=== PATIENT | female | born 1930 | race Caucasian/White ===

== ENCOUNTER 2017-04-01 09:31 | Inpatient (IN) ==
[2017-04-01] MEDS ORDERED: 0.9 % Sodium Chloride 1,000 ML IVC ONE (09:36)
[2017-04-01 09:55] LABS: Basophils % 0.5 %; Eosinophils # 0.2 K/mcL (0.0-0.6); Eosinophils % 1.8 %; Hematocrit 45.1 % (35.3-44.9); Hemoglobin 14.5 g/dL (11.5-15.4); Immature Granulocytes % 0.9 % (0-4); Lymphocytes # 0.8 K/mcL (0.6-4.6); Lymphocytes % 10.2 %; Mean Corpuscular HGB Conc 32.2 g/dL (31.6-35.5); Mean Corpuscular Hemoglobin 30.6 pg (28.0-33.3); Mean Corpuscular Volume 95.1 fL (83.0-100.0); Mean Platelet Volume 10.4 fL (9.4-12.4); Monocytes # 0.6 K/mcL (0.0-1.3); Monocytes % 6.7 %; Neutrophils # 6.6 K/mcL (1.6-8.9); Platelet Count 198 K/mcL (140-400); Red Blood Count 4.74 M/mcL (3.82-4.97); Red Cell Distribution Width 13.7 % (11.5-14.5); Segmented Neutrophils % 79.9 %
[2017-04-01 10:01] LABS: Prothrombin Time 10.4 Seconds (9.4-12.1)
[2017-04-01 10:04] LABS: Activated Partial Thrombo Time 31.5 Seconds (26.0-36.0)
[2017-04-01 10:08] LABS: Albumin 3.8 g/dL (3.5-5.0); Bilirubin,Total 0.5 mg/dL (0.2-1.2); Calcium 9.8 mg/dL (8.6-10.8); Globulin 3.7 g/dL (2.4-3.5); Potassium 4.5 mEq/L (3.5-4.5); Total Protein 7.5 g/dL (6.0-8.3)
--- NOTE | 2017-04-01 10:18 | Emergency Department Note ---
START Narrative - START START: I examined this patient and my medical decision-making was reviewed with the Resident Physician. I agree with the documented findings, disposition and treatment plan as described except to the extent set forth below. 86 year old female presents to the ED with complaints of near sycnope that has been going for the past week or so with geenralized weakness. Vonda denies synope at this titme. Vonda denies fevers, cough, cold, congestion, nausea, ovmitting, chest pain, abdominal pain, or neurological defecits. NO UTI symptoms. WE will do a syncope mohsen on vonda with labs, EKG, CXr, UA for evaluation. She has a chronic femur fracture and has difficulty with ambulation at baseline. [facility].
[2017-04-01 10:50] LABS: Bilirubin,Urine Negative (Negative); Blood,Urine Negative (Negative); Clarity,Urine Clear (Clear); Color,Urine Yellow (Yellow); Glucose,Urine (UA) Normal (Normal); Ketones,Urine Negative (Negative); Leukocyte Esterase,Urine Large (Negative); Nitrite,Urine Negative (Negative); Protein,Urine Negative (Neg-Trace); Specific Gravity,Urine 1.012 (1.010-1.025); Urobilinogen,Urine Normal (Normal)
[2017-04-01 10:53] LABS: Bacteria,Urine None Seen per hpf (None-Few); Hyaline Casts,Urine None Seen per lpf (None-Few); RBC,Urine 0-3 per hpf (0-3); Squamous Epithelial Cell,Urine Many per lpf (None-Few); WBC,Urine 30-50 per hpf (0-3)
--- NOTE | 2017-04-01 11:30 | Emergency Department Note ---
Disposition Clinical Impression: Fracture of femur, Left bundle branch block (LBBB) on electrocardiogram, Syncope, PREMA (acute kidney injury), CHF (congestive heart failure) Disposition: Admitted As Inpatient Condition: Fair Syncope HPI - General Chief Complaint: ED Syncope Stated Complaint: syncope, abnormal sensations Time Seen by Provider: 04/01/17 09:33 Source: patient, EMS Mode of arrival: EMS Limitations: no limitations Nursing Notes Reviewed: Yes Vital Signs Reviewed: Yes - History of Present Illness HPI Narrative: Patient presents to the ED with the chief complaint of passing out and feeling weird. Patient reports that she has been having syncopal and near-syncopal episodes over the last week, complaining of generalized weakness and fatigue. States she gets numbness and tingling in her face, arms and legs at times. States that she just does not feel well. Complaining of some shortness of breath as well. Denies any chest pain, abdominal pain. Has been nauseated at times. Has chronic pain and swelling in her legs after a femur fracture 2 years ago. - Related Data Home Medications Medication Instructions Recorded Confirmed Atenolol [Tenormin] 50 mg PO DAILY 05/13/15 04/01/17 Chlorthalidone 25 mg PO DAILY 05/13/15 04/01/17 Potassium Chloride 10 meq PO BID 05/13/15 04/01/17 Calcium Carbonate/Vitamin D3 1 tab PO DAILY 04/01/17 04/01/17 [Calcium 500 + Vit D Caplet] Allergies Allergy/AdvReac Type Severity Reaction Status Date / Time Pnlkamp-Ddi-Elr Reductase Allergy Vomiting Verified 04/01/17 09:33 Inhibitor [Statins] All systems ED: reviewed and negative except as stated. Constitutional: Denies: fever Eyes: Denies: vision change Cardiovascular: Reports: dyspnea on exertion, orthopnea, edema, syncope, paroxysmal nocturnal dyspnea. Denies: chest pain Respiratory: Reports: dyspnea Gastrointestinal: Reports: nausea Neurological: Denies: headache Past Medical History - Past Medical History Attestation: Yes The following information was validated with the patient. Source: patient Medical history: Reports: GERD, hyperlipidemia, hypertension, osteoporosis, other Surgical history: Reports: cataract, cholecystectomy, knee replacement, PEREZ/BSO , other Psychiatric history: Reports: anxiety - Social History Smoking Status: Former smoker Smokeless Tobacco Status: No Alcohol use: Reports: none Drug use: Reports: none Physical Exam - General Limitations: no limitations General appearance: alert, in no apparent distress - Head Head exam: atraumatic, normocephalic, normal inspection - Eye Eye exam: Present: normal appearance, PERRL, EOMI - Chest Chest inspection: Present: normal inspection, symmetric chest wall rise - Respiratory Respiratory exam: Present: other (Decreased breath sounds bilateral bases). Absent: normal lung sounds bilaterally, respiratory distress - Cardiovascular Cardiovascular exam: Present: regular rate, normal rhythm, normal heart sounds - Abdominal Exam Abdominal exam: Present: soft, Non-Tender. Absent: tenderness, distention, guarding, rebound, rigidity - Extremities Exam Extremities exam: Present: pedal edema - Neurological Exam Neurological exam: Present: alert, oriented X3 - Psychiatric Psychiatric exam: Present: normal affect, normal mood - Skin Skin exam: Present: warm, dry, intact, normal color Course Course Narrative: Patient presenting with near syncope and shortness of breath. Seems to be related to CHF, although she denies any history. We will get a CT scan of her head labs and admit. Vital Signs Temperature 98 F 04/01/17 09:34 Pulse Rate 68 04/01/17 09:34 Respiratory Rate 18 04/01/17 09:34 Blood Pressure 163/78 04/01/17 09:34 O2 Sat by Pulse Oximetry 97 04/01/17 09:34 Temperature 97.4 F L 04/01/17 13:45 Pulse Rate 75 04/01/17 13:45 Respiratory Rate 17 04/01/17 13:45 Blood Pressure 129/76 04/01/17 13:45 O2 Sat by Pulse Oximetry 95 04/01/17 13:45 Oxygen Delivery Oxygen Delivery Room Air Syncope - Lab Data Result diagrams: 04/01/17 09:45 04/01/17 09:45 Lab Results 04/01/17 04/01/17 04/01/17 Range/Units 09:45 09:45 09:45 WBC 8.2 (4.3-11.1) K/mcL RBC 4.74 (3.82-4.97) M/mcL Hgb 14.5 (11.5-15.4) g/dL Hct 45.1 H (35.3-44.9) % MCV 95.1 (83.0-100.0) fL MCH 30.6 (28.0-33.3) pg MCHC 32.2 (31.6-35.5) g/dL RDW 13.7 (11.5-14.5) % Plt Count 198 (140-400) K/mcL MPV 10.4 (9.4-12.4) fL Immature Gran % 0.9 (0-4) % Seg Neutrophils % 79.9 % Lymphocytes % 10.2 % Monocytes % 6.7 % Eosinophils % 1.8 % Basophils % 0.5 % Neutrophils # 6.6 (1.6-8.9) K/mcL Lymphocytes # 0.8 (0.6-4.6) K/mcL Monocytes # 0.6 (0.0-1.3) K/mcL Eosinophils # 0.2 (0.0-0.6) K/mcL Basophils # 0.0 (0.0-0.2) K/mcL PT 10.4 (9.4-12.1) Seconds INR 1.0 APTT 31.5 (26.0-36.0) Seconds Sodium 140 (136-145) mEq/L Potassium 4.5 (3.5-4.5) mEq/L Chloride 105 (98-109) mEq/L Carbon Dioxide 28 (19-29) mEq/L BUN 25 H (7-20) mg/dL Creatinine 1.17 H (0.57-1.11) mg/dL Est GFR ( Amer) 53 L (> 60) Est GFR (Non-Af Amer) 44 L (> 60) BUN/Creatinine Ratio 21 (6-26) Glucose 104 H (70-99) mg/dL POC Glucose (58-89) Calculated Osmolality 295 (280-300) Lactic Acid (0.5-2.2) mmol/L Calcium 9.8 (8.6-10.8) mg/dL Total Bilirubin 0.5 (0.2-1.2) mg/dL AST 16 (5-34) Units/L ALT 10 (0-55) Units/L Alkaline Phosphatase 61 (38-126) Units/L Troponin I (0-0.03) ng/mL B-Natriuretic Peptide (0-100) pg/mL Serum Total Protein 7.5 (6.0-8.3) g/dL Albumin 3.8 (3.5-5.0) g/dL Globulin 3.7 H (2.4-3.5) g/dL Albumin/Globulin Ratio 1.0 L (1.1-2.2) Urine Color (Yellow) Urine Clarity (Clear) Urine pH (5.0-8.0) pH Units Ur Specific [place] (1.010-1.025) Urine Protein (Neg-Trace) mg/dL Urine Glucose (UA) (Normal) mg/dL Urine Ketones (Negative) mg/dL Urine Blood (Negative) Urine Nitrite (Negative) Urine Bilirubin (Negative) Urine Urobilinogen (Normal) mg/dL Ur Leukocyte Esterase (Negative) Urine Microscopic RBC (0-3) per hpf Urine Microscopic WBC (0-3) per hpf Ur Squamous Epith Cells (None-Few) per lpf Urine Bacteria (None-Few) per hpf Hyaline Casts (None-Few) per lpf Ur Culture Indicated? (NO) 04/01/17 04/01/17 04/01/17 Range/Units 09:45 09:45 09:45 WBC (4.3-11.1) K/mcL RBC (3.82-4.97) M/mcL Hgb (11.5-15.4) g/dL Hct (35.3-44.9) % MCV (83.0-100.0) fL MCH (28.0-33.3) pg MCHC (31.6-35.5) g/dL RDW (11.5-14.5) % Plt Count (140-400) K/mcL MPV (9.4-12.4) fL Immature Gran % (0-4) % Seg Neutrophils % % Lymphocytes % % Monocytes % % Eosinophils % % Basophils % % Neutrophils # (1.6-8.9) K/mcL Lymphocytes # (0.6-4.6) K/mcL Monocytes # (0.0-1.3) K/mcL Eosinophils # (0.0-0.6) K/mcL Basophils # (0.0-0.2) K/mcL PT (9.4-12.1) Seconds INR APTT (26.0-36.0) Seconds Sodium (136-145) mEq/L Potassium (3.5-4.5) mEq/L Chloride (98-109) mEq/L Carbon Dioxide (19-29) mEq/L BUN (7-20) mg/dL Creatinine (0.57-1.11) mg/dL Est GFR ( Amer) (> 60) Est GFR (Non-Af Amer) (> 60) BUN/Creatinine Ratio (6-26) Glucose (70-99) mg/dL POC Glucose (58-89) Calculated Osmolality (280-300) Lactic Acid 0.9 (0.5-2.2) mmol/L Calcium (8.6-10.8) mg/dL Total Bilirubin (0.2-1.2) mg/dL AST (5-34) Units/L ALT (0-55) Units/L Alkaline Phosphatase (38-126) Units/L Troponin I 0.01 (0-0.03) ng/mL B-Natriuretic Peptide 202 H (0-100) pg/mL Serum Total Protein (6.0-8.3) g/dL Albumin (3.5-5.0) g/dL Globulin (2.4-3.5) g/dL Albumin/Globulin Ratio (1.1-2.2) Urine Color (Yellow) Urine Clarity (Clear) Urine pH (5.0-8.0) pH Units Ur Specific [place] (1.010-1.025) Urine Protein (Neg-Trace) mg/dL Urine Glucose (UA) (Normal) mg/dL Urine Ketones (Negative) mg/dL Urine Blood (Negative) Urine Nitrite (Negative) Urine Bilirubin (Negative) Urine Urobilinogen (Normal) mg/dL Ur Leukocyte Esterase (Negative) Urine Microscopic RBC (0-3) per hpf Urine Microscopic WBC (0-3) per hpf Ur Squamous Epith Cells (None-Few) per lpf Urine Bacteria (None-Few) per hpf Hyaline Casts (None-Few) per lpf Ur Culture Indicated? (NO) 04/01/17 04/01/17 Range/Units 10:26 10:41 WBC (4.3-11.1) K/mcL RBC (3.82-4.97) M/mcL Hgb (11.5-15.4) g/dL Hct (35.3-44.9) % MCV (83.0-100.0) fL MCH (28.0-33.3) pg MCHC (31.6-35.5) g/dL RDW (11.5-14.5) % Plt Count (140-400) K/mcL MPV (9.4-12.4) fL Immature Gran % (0-4) % Seg Neutrophils % % Lymphocytes % % Monocytes % % Eosinophils % % Basophils % % Neutrophils # (1.6-8.9) K/mcL Lymphocytes # (0.6-4.6) K/mcL Monocytes # (0.0-1.3) K/mcL Eosinophils # (0.0-0.6) K/mcL Basophils # (0.0-0.2) K/mcL PT (9.4-12.1) Seconds INR APTT (26.0-36.0) Seconds Sodium (136-145) mEq/L Potassium (3.5-4.5) mEq/L Chloride (98-109) mEq/L Carbon Dioxide (19-29) mEq/L BUN (7-20) mg/dL Creatinine (0.57-1.11) mg/dL Est GFR ( Amer) (> 60) Est GFR (Non-Af Amer) (> 60) BUN/Creatinine Ratio (6-26) Glucose (70-99) mg/dL POC Glucose 87 (58-89) Calculated Osmolality (280-300) Lactic Acid (0.5-2.2) mmol/L Calcium (8.6-10.8) mg/dL Total Bilirubin (0.2-1.2) mg/dL AST (5-34) Units/L ALT (0-55) Units/L Alkaline Phosphatase (38-126) Units/L Troponin I (0-0.03) ng/mL B-Natriuretic Peptide (0-100) pg/mL Serum Total Protein (6.0-8.3) g/dL Albumin (3.5-5.0) g/dL Globulin (2.4-3.5) g/dL Albumin/Globulin Ratio (1.1-2.2) Urine Color Yellow (Yellow) Urine Clarity Clear (Clear) Urine pH 7.0 (5.0-8.0) pH Units Ur Specific [place] 1.012 (1.010-1.025) Urine Protein Negative (Neg-Trace) mg/dL Urine Glucose (UA) Normal (Normal) mg/dL Urine Ketones Negative (Negative) mg/dL Urine Blood Negative (Negative) Urine Nitrite Negative (Negative) Urine Bilirubin Negative (Negative) Urine Urobilinogen Normal (Normal) mg/dL Ur Leukocyte Esterase Large H (Negative) Urine Microscopic RBC 0-3 (0-3) per hpf Urine Microscopic WBC 30-50 H (0-3) per hpf Ur Squamous Epith Cells Many H (None-Few) per lpf Urine Bacteria None Seen (None-Few) per hpf Hyaline Casts None Seen (None-Few) per lpf Ur Culture Indicated? YES A (NO)
[2017-04-01] MEDS ORDERED: MOM Conc 10 ML UD.LIQ PO PRN (13:39)
[2017-04-01] MEDS ORDERED: Naloxone 0.4 MG/ML INJ IVP PRN (13:39)
[2017-04-01] MEDS ORDERED: Acetaminophen 325 MG TABLET PO PRN (13:39)
[2017-04-01] MEDS ORDERED: Ondansetron ODT 4 MG TAB.RAPDIS SL PRN (13:39)
[2017-04-01] MEDS ORDERED: Mag Hydrox/Al Hydrox/Simeth 30 ML UDC PO PRN (13:39)
--- NOTE | 2017-04-01 16:00 | Internal Med History&Physical ---
Date of Encounter: 04/01/17 Time of Encounter: 13:30 Assessment and Plan (1) Syncope Current visit: Yes Status: Acute Pt with multiple syncopal episodes. Come on abruptly, unsure of length. Will check echo, carotids. Monitor on tele. Check EEG. Consult neuro for further evaluation. Hold any further imaging for now until seen by neuro. Qualifiers: Syncope type: unspecified Qualified Code(s): R55 - Syncope and collapse (2) PREMA (acute kidney injury) Current visit: Yes Status: Acute Creatinine elevated from baseline. Pt on chlorthalidone. Hold med and give gentle fluids (some given in ED). Recheck labs tomorrow. (3) Hypertension Current visit: No Status: Chronic Monitor on tele. Hold chlorthalidone due to renal dysfunction. Atenolol to be continued at this time but patient on telemetry. Qualifiers: Hypertension type: essential hypertension Qualified Code(s): I10 - Essential (primary) hypertension (4) UTI (urinary tract infection) Current visit: Yes Status: Acute UA has leukocytes. Culture pending. Will give dose of Ceftriaxone IV. Qualifiers: Urinary tract infection type: acute cystitis Hematuria presence: without hematuria Qualified Code(s): N30.00 - Acute cystitis without hematuria Internal Medicine - H&P: HPI Chief complaint: passing out Admitted From: Emergency Dept Plans for Post Hospital Care: Home History of present illness: Ms. Jackman is a 86 year old female with hx of HTN presented to ED with multiple syncopal episodes. She stated that over the last few days she has been having these episodes. She had 5 this AM. She describes the episode as a feeling that starts in her upper chest/neck. It feels like a pressure and progresses up to the top of her head. When it gets up to top she has been passing out. She is not sure how long she is out but she awakens slowly like in a tunnel and then is completely awake. These have occurred in sitting position. She has not gotten up and walked for fear of falling. Between episodes she is baseline. Denies fever or chills. No abd pain or GI issues. No changes in her meds or new meds. Drinks a lot of water during the day normally (not today due to this situation). She also has had a feeling of trying to get a deep breath and feeling short of breath when it starts. She denies numbness or tingling or other neuro symptoms. These episodes have never happened in the past. Currently she feels at baseline. No CP or SOB. No neuro symptoms. Drinking water. Not much appetite at this time. Ms Jackman is high risk due to significant and frequent syncopal episodes of unknown etiology. Past Med Surg Social Fam HX - Past Medical History Medical history: GERD, hyperlipidemia, hypertension, osteoporosis, other Psychiatric history: anxiety - Past Surgical History Surgical History: cataract, cholecystectomy, knee replacement, PEREZ/BSO, other - Social History Smoking Status: Former smoker Smokeless Tobacco Status: No Alcohol use: none Drug use: none - Family History Mother Living Status: Hx Family Cardiac Disorders: Yes Hx Family Respiratory Disorders: No Hx Family Cancer: Yes Hx Family GI Disorders: No Hx Family Endocrine Disorder: No Hx Family Neuromuscular Disorders: No Hx Family Neurologic Disorders: No Hx Family HEENT Disorders: No Hx Family Autoimmune Disorders: No Internal Medicine - H&P: Meds Atenolol [Tenormin] 50 mg PO DAILY 05/13/15 [History] Chlorthalidone 25 mg PO DAILY 05/13/15 [History] Potassium Chloride 10 meq PO BID 05/13/15 [History] Calcium Carbonate/Vitamin D3 [Calcium 500 + Vit D Caplet] 1 tab PO DAILY [History] 3 Allergy/AdvReac Type Severity Reaction Status Date / Time Rgrnjwu-Wpq-Uch Reductase Allergy Vomiting Verified 04/01/17 09:33 Inhibitor [Statins] All Systems PM: A 10-system review of systems was performed and is negative for pertinent findings except as documented above in the HPI. - Constitutional Constitutional: fatigue, malaise, weakness, no chills, no fever(s) - EENT Eyes: no change in vision, no pain Ears: no decreased hearing Nose, mouth and throat: dry mouth, no nasal discharge, no sinus pressure, no sore throat - Cardiovascular Cardiovascular ROS IM: dyspnea, edema, syncope, no chest pain, no orthopnea, no palpitations, no paroxysmal nocturnal dyspnea - Respiratory Respiratory: dyspnea, no cough, no dyspnea on exertion, no wheezing, no chest congestion, no excessive phlegm production, no pain with cough - Gastrointestinal Gastrointestinal: no bloating, no constipation, no cramping, no diarrhea, no hematemesis, no hematochezia, no melena, no nausea - Genitourinary Genitourinary: no difficulty urinating, no dysuria, no urinary frequency, no urinary urgency - Musculoskeletal Musculoskeletal ROS IM: arthralgias, no myalgias, no numbness - Integumentary Integumentary IM: no erythema, no rash - Neurological Neurological ROS: as per HPI, no confusion - Psychiatric Psychiatric: anxiety - Endocrine Endocrine IM: no cold intolerance, no heat intolerance - Hematologic/Lymphatic Hematologic/Lymphatic: no easy bleeding - Allergic/Immunologic Allergic/Immunologic: no itchy eyes - Constitutional Vitals: Temp Pulse Resp BP Pulse Ox 97.3 F L 67 15 105/69 98 04/01/17 15:28 04/01/17 15:28 04/01/17 15:28 04/01/17 15:28 04/01/17 15:28 General appearance: Present: mild distress, A&O X 3, pleasant, answers questions appropriately - Head Head exam: Present: atraumatic, normocephalic - Eye Eye exam: Present: EOMI - ENT ENT exam: Present: mucous membranes dry - Neck Neck exam general surgery: Present: normal inspection, trachea midline. Absent : lymphadenopathy, tenderness, thyromegaly - Respiratory Respiratory exam: Present: decreased breath sounds. Absent: CTAB, rales, rhonchi, wheezes - Cardiovascular Cardiovascular exam: Present: distant heart sounds, RRR. Absent: systolic murmur, tachycardia - GI/Abdominal GI/Abdominal exam: Present: normal bowel sounds, soft. Absent: mass, tenderness - Extremities Exam Extremities exam: Present: pedal edema, tenderness, warm - Neurological Exam Neurological exam: Present: alert, oriented X3, no focal deficits - Skin Skin exam: Present: dry, warm. Absent: rash Internal Med - H&P Results - Labs CBC & Chem 7: 04/01/17 09:45 04/01/17 09:45
[2017-04-01] MEDS: cefTRIAXone 1,000 MG in Water for inj. (sterile) 10 ML IVP SCH (17:25)
[2017-04-02 05:23] LABS: Basophils % 0.3 %; Eosinophils # 0.2 K/mcL (0.0-0.6); Eosinophils % 3.9 %; Hematocrit 39.2 % (35.3-44.9); Immature Granulocytes % 0.7 % (0-4); Lymphocytes # 1.4 K/mcL (0.6-4.6); Lymphocytes % 22.7 %; Mean Corpuscular HGB Conc 32.1 g/dL (31.6-35.5); Mean Corpuscular Hemoglobin 30.3 pg (28.0-33.3); Mean Corpuscular Volume 94.2 fL (83.0-100.0); Mean Platelet Volume 11.1 fL (9.4-12.4); Monocytes # 0.6 K/mcL (0.0-1.3); Monocytes % 10.8 %; Neutrophils # 3.7 K/mcL (1.6-8.9); Platelet Count 179 K/mcL (140-400); Red Blood Count 4.16 M/mcL (3.82-4.97); Red Cell Distribution Width 13.7 % (11.5-14.5); Segmented Neutrophils % 61.6 %
[2017-04-02 05:26] LABS: Hemoglobin 12.6 g/dL (11.5-15.4)
[2017-04-02 05:37] LABS: BUN/Creatinine Ratio 21 (6-26); Blood Urea Nitrogen 18 mg/dL (7-20); Carbon Dioxide 25 mEq/L (19-29); Chloride 108 mEq/L (98-109); Chol/HDL Ratio 3.9 (0-4.9); Cholesterol 165 mg/dL (< 200); Glucose 86 mg/dL (70-99); HDL Cholesterol 42 mg/dL (40-59); LDL Cholesterol,Calculated 99 mg/dL (0-99); Magnesium 1.9 mg/dL (1.6-2.6); Osmolality,Calculated 293 (280-300); Sodium 141 mEq/L (136-145); Triglycerides 118 mg/dL (< 150); eGFR For African Americans > 60 (> 60); eGFR For Non-African Americans > 60 (> 60)
[2017-04-02 05:38] LABS: Potassium 3.4 mEq/L (3.5-4.5)
[2017-04-02] MEDS: cefTRIAXone 1,000 MG in Water for inj. (sterile) 10 ML IVP SCH (08:20)
--- NOTE | 2017-04-02 13:10 | Electrocardiograph Report ---
[place] [id number] Test Date: 2017-04-01 Pat Name: Leonela Jackman Department: 104 Room: 3B Gender: F [employer] Engineer: : [id number] Requested By: Audie Hannah Order Number: [id number] Reading MD: Zoe Lara Measurements Intervals [place] Rate: 65 P: 57 MI: 275 QRS: -37 QRSD: 154 T: 115 QT: 435 QTc: 446 Interpretive Statements SINUS RHYTHM WITH FIRST DEGREE AV BLOCK LEFT BUNDLE BRANCH BLOCK Electronically Signed On 04-02-2017 12:59:18 EST by Zoe Lara
--- NOTE | 2017-04-02 14:36 | Cardiology Consult Note ---
Date of Encounter: 04/02/17 Time of Encounter: 14:28 Assessment and Plan (1) Bradycardia Current Visit: Yes Status: Acute EKG shows 2:1 AV block, LBBB, HR 38 BPM. Telemetry review shows Avg HR 63 BPM, NSR with episodes of bradycardia with HR as low as 32 bpm, 2.4 second pauses, episodes of 2:1 AV block, episodes of junctional rhythm. HR up to 90 bpm. HR currently in the 40's, sinus bradycardia and she is asymptomatic. B/p is stable. On Atenolol 50 mg daily for HTN at home. Hold atenolol and avoid AV wilder blockers. Monitor 24-48 hours for improvement. Last dose atenolol was this morning. K-3.4- replacement ordered. If no improvement we will consult EP. Previous testing: Known LBBB. TTE 05/15/15 -Normal LV systolic function, LVEF 65%. There is dyssynchronous septal motion consistent with bundle branch block. (2) Syncope Current Visit: Yes Status: Acute Multiple syncopal events likely secondary to bradycardia and sinus pauses. Agree with holding atenolol for 48 hours to see if heart rate improves. Avoid AV wilder blockers. TTE pending. Qualifiers: Syncope type: unspecified Qualified Code(s): R55 - Syncope and collapse (3) Left bundle branch block (LBBB) on electrocardiogram Current Visit: Yes Status: Chronic H/o LBBB. Seen on EKG in 2016. Discussion w patient/family: The assessment and plan as outlined above was discussed with the patient and/or family members who expressed understanding and agreement. All questions were answered. Thank you for involving us in the care of your patient. Please call with any questions. History of Present Illness Consult date: 04/02/17 Requesting physician: Fernando Nolan Consult reason: Bradycardia Chief complaint: syncopal epeisodes History of present illness: Ms. Jackman is a 86 year old female with a past medical history of HTN, HLD, and LBBB who presented after experiencing 3 syncopal events at home yesterday. She reports sitting in her chair when she felt like a veil was going over her face. When she would wake up she felt disoriented and unsure of her surroundings. She states that she felt milder episodes in that past but did not worry about the events. Her work-up revealed bradycardia with HR as low as 30 bpm and sinus pauses. Cardiology consulted for further evaluation. She is on atenolol for hypertension. Atenolol was held today by the primary service. Past Med Surg Social Fam HX - Past Medical History Medical history: GERD, hyperlipidemia, hypertension, osteoporosis, other Psychiatric history: anxiety - Past Surgical History Surgical History: cataract, cholecystectomy, knee replacement, PEREZ/BSO, other - Social History Smoking Status: Former smoker Smokeless Tobacco Status: No Alcohol use: none Drug use: none - Family History Mother Living Status: Hx Family Cardiac Disorders: Yes Hx Family Respiratory Disorders: No Hx Family Cancer: Yes Hx Family GI Disorders: No Hx Family Endocrine Disorder: No Hx Family Neuromuscular Disorders: No Hx Family Neurologic Disorders: No Hx Family HEENT Disorders: No Hx Family Autoimmune Disorders: No Medications and Allergies Atenolol [Tenormin] 50 mg PO DAILY 05/13/15 [History] Chlorthalidone 25 mg PO DAILY 05/13/15 [History] Potassium Chloride 10 meq PO BID 05/13/15 [History] Calcium Carbonate/Vitamin D3 [Calcium 500 + Vit D Caplet] 1 tab PO DAILY [History] 3 Allergy/AdvReac Type Severity Reaction Status Date / Time Uslempx-Dhm-Jjy Reductase Allergy Vomiting Verified 04/01/17 09:33 Inhibitor [Statins] All Systems Review: A 10-system review of systems was performed and is negative for pertinent findings except as documented above in the HPI. Physical Examination Vital Signs, Last 4 Hours Temp Pulse Resp BP BP BP BP 04/02/17 13:44 98.1 F 43 18 148/73 04/02/17 13:43 90/43 108/47 148/73 Pulse Ox 04/02/17 13:44 97 04/02/17 13:43 General: Conversant, No Apparent Distress HEENT: Atraumatic, Normocephaly, Mucus Membranes Moist Neck: No JVD, Normal carotid pulses Cardiac: Reg Rate and Rhythm, Normal S1 and S2, No Murmur Lungs: Normal Breath Sounds, No Wheeze, Rales, Rhonchi Neuro: Alert and responsive, No focal deficits noted Abdomen: Soft, Non-Tender Skin: No rashes noted on visualized skin Musculoskeletal: No Chest Wall Tenderness Extremities: No Clubbing, No Cyanosis, No Edema, Normal Pulses, Other (BLE extremities with scaling) Results 04/02/17 04:34 04/02/17 04:34 Lab Results 04/01/17 04/01/17 04/02/17 15:48 22:25 04:34 WBC Hgb Hct Plt Count Sodium Potassium Chloride Carbon Dioxide BUN Creatinine Glucose Calcium Magnesium Troponin I 0.02 0.03 0.02 TSH 04/02/17 04/02/17 04/02/17 04:34 04:34 04:34 WBC 5.9 Hgb 12.6 D Hct 39.2 Plt Count 179 Sodium 141 Potassium 3.4 L D Chloride 108 Carbon Dioxide 25 BUN 18 Creatinine 0.84 Glucose 86 Calcium 9.0 Magnesium 1.9 Troponin I TSH 4.083 Consult Discharge Plan - Plan Referrals: Stuart St DO [Primary Care Provider] -
--- NOTE | 2017-04-02 15:41 | Neurology - Consult Note ---
Date of Encounter: 04/02/17 Time of Encounter: 08:30 Assessment and Plan (1) Syncope Current Visit: Yes Status: Acute This patient who apparently having these multiple episode of passing out without any typical postictal state had quite a few of them yesterday but did not have since she is being admitted to the hospital This seems to be quite unusual but likely cardiogenic in nature though seizures are in the differential but certainly the description does not sound like a typical seizure. She is getting cardiac workup and cardiology services has been consulted. No acute focal findings on neurological examination to be suggestive of stroke imaging studies has been negative for any acute stroke we may do EEG to exclude any interictal abnormalities but I would recommend that she should be checked for orthostatic and at the same time and particularly for cardiac arrhythmias again cardiology service is on board will follow the recommendation from neurology standpoint at this time I would not recommend any other studies except EEG Other workup is as per primary team Qualifiers: Syncope type: unspecified Qualified Code(s): R55 - Syncope and collapse History of Present Illness HPI: Ms. Jackman is a 86 year old female with hx of HTN presented to ED with multiple syncopal episodes. according to the pt over the last few days she has been having these episodes. She describes the episode as a feeling that starts in her upper chest/neck. It feels like a pressure and progresses up to the top of her head. When it gets up to top she has been passing out they dont last very long only minute or so, she had 5 of them yesterday, she awakens slowly like in a tunnel and then is completely awake. These have occurred in sitting position. She has not gotten up and walked for fear of falling. Between episodes she is normAL, denies any jerkign or shaking, fever or chills. She also has had a feeling of trying to get a deep breath and feeling short of breath when it starts. She denies numbness or tingling or other neuro symptoms. These episodes have never happened in the past. She denies any history of stroke or any history of seizures at the same time she denies any urinary or bowel incontinence with these spells Past Med Surg Social Fam HX - Past Medical History Medical history: GERD, hyperlipidemia, hypertension, osteoporosis, other Psychiatric history: anxiety - Past Surgical History Surgical History: cataract, cholecystectomy, knee replacement, PEREZ/BSO, other - Social History Smoking Status: Former smoker Smokeless Tobacco Status: No Alcohol use: none Drug use: none - Family History Mother Living Status: Hx Family Cardiac Disorders: Yes Hx Family Respiratory Disorders: No Hx Family Cancer: Yes Hx Family GI Disorders: No Hx Family Endocrine Disorder: No Hx Family Neuromuscular Disorders: No Hx Family Neurologic Disorders: No Hx Family HEENT Disorders: No Hx Family Autoimmune Disorders: No Medications and Allergies Atenolol [Tenormin] 50 mg PO DAILY 05/13/15 [History] Chlorthalidone 25 mg PO DAILY 05/13/15 [History] Potassium Chloride 10 meq PO BID 05/13/15 [History] Calcium Carbonate/Vitamin D3 [Calcium 500 + Vit D Caplet] 1 tab PO DAILY [History] 3 Allergy/AdvReac Type Severity Reaction Status Date / Time [id number] Reductase Allergy Vomiting Verified 04/01/17 09:33 Inhibitor [Statins] All Systems: A 10-system review of systems was performed and is negative for pertinent findings except as documented above in the HPI. Physical Examination - Vital Signs Vital Signs: Initial Vital Signs Temp Pulse Resp BP Pulse Ox 98 F 68 18 163/78 97 04/01/17 09:34 04/01/17 09:34 04/01/17 09:34 04/01/17 09:34 04/01/17 09:34 - Constitutional General appearance: comfortable - Neurologic Detailed motor examination: full strength in all major muscle groups Motor examination - right side: 5/5: deltoids, biceps, triceps, wrist flexion, wrist extension, salesperson china and glassware, hip flexors, tibialis Anterior, quadriceps, toe extension (EHL), plantarflexion Motor examination - left side: 5/5: deltoids, biceps, triceps, wrist flexion, wrist extension, hip flexors, salesperson china and glassware, quadriceps, tibialis Anterior, toe extension (EHL), plantarflexion Detailed sensory examination: intact Reflex and gait examination: intact Reflexes: Biceps: 1+, Triceps: 1+, Brachioradialis: 1+, Patella: 1+, Achilles: 1 + Mental Status Examination: awake, alert, oriented to person, oriented to place, oriented to time, follows commands appropriately, answers questions appropriately, no agnosia, no aphasia, no aproxia Cranial nerve examination: PERRL, EOMI, visual rojo intact, corneal reflexes brisk symmetrically, sensory to face intact, mastication intact, no facial asymmetry is present, no dysarthria, hearing is intact symmetrically, soft palate elevates bilaterally upon phonation, gag reflex intact, flexes SCM and trapezius muscles symmetrically with full power, tongue protrudes midline, no atrophy or facial fasiculations present Cerebellar examination: no dysmetria, performs finger to nose and heel to bermudez symmetrically without ataxia, no gait ataxia, no truncal ataxia, no difficulty with rapid alternating movements Results - Laboratory Findings CBC and BMP: 04/02/17 04:34 04/02/17 04:34 Abnormal lab findings: Abnormal lab results Potassium 3.4 mEq/L (3.5-4.5) L D 04/02/17 04:34 B-Natriuretic Peptide 202 pg/mL (0-100) H 04/01/17 09:45 Globulin 3.7 g/dL (2.4-3.5) H 04/01/17 09:45 Albumin/Globulin Ratio 1.0 (1.1-2.2) L 04/01/17 09:45 Ur Leukocyte Esterase Large (Negative) H 04/01/17 10:41 Urine Microscopic WBC 30-50 per hpf (0-3) H 04/01/17 10:41 Ur Squamous Epith Cells Many per lpf (None-Few) H 04/01/17 10:41 Ur Culture Indicated? YES (NO) A 04/01/17 10:41 Consult Discharge Plan - Plan Referrals: Stuart St DO [Primary Care Provider] -
--- NOTE | 2017-04-02 18:46 | Internal Med Progress Note ---
Date of Encounter: 04/02/17 Time of Encounter: 12:45 - Assessment and plan (1) AV block Current Visit: Yes Status: Acute (2) Syncope Current Visit: Yes Status: Acute Assessment and plan: Most likely related to bradycardia and AV block. Monitor on tele. Admit inpatient now. Hold AVN blocking agents. Qualifiers: Syncope type: unspecified Qualified Code(s): R55 - Syncope and collapse (3) PREMA (acute kidney injury) Current Visit: Yes Status: Acute Assessment and plan: Continue to avoid nephrotoxins. (4) Hypertension Current Visit: No Status: Chronic Assessment and plan: Controlled at this time. Meds are on hold. May need additional other agents started. Qualifiers: Hypertension type: essential hypertension Qualified Code(s): I10 - Essential (primary) hypertension (5) UTI (urinary tract infection) Current Visit: Yes Status: Acute Assessment and plan: On IV abx for now. Cx pending. Qualifiers: Urinary tract infection type: acute cystitis Hematuria presence: without hematuria Qualified Code(s): N30.00 - Acute cystitis without hematuria (6) Hypokalemia Current Visit: Yes Status: Acute Assessment and plan: Replace today - Subjective Interval history: Ms Jackman is currently in observation for syncopal episode. She is moderate to high risk at this time. Ms Jackman is not having symptoms but noted to be very bradycardic at times. No CP or SOB. No fever or chills. Cardiology consulted for further input. Ms Jackman will be admitted to inpatient today - due to bradycardia she will be in the hospital for greater than 2 midnights more and may ultimately need pacemaker. - Constitutional Vitals: Temp Pulse Resp BP Pulse Ox 98.4 F 35 16 109/60 96 04/02/17 15:42 04/02/17 15:42 04/02/17 15:42 04/02/17 15:42 04/02/17 15:42 General appearance: Present: A&O X 3, pleasant, answers questions appropriately - Head Head exam: Present: atraumatic, normocephalic - Eye Eye exam: Present: EOMI, conjuntiva pink - ENT ENT exam: Present: mucous membranes moist - Respiratory Respiratory exam: Present: CTAB. Absent: rales, rhonchi, wheezes - Cardiovascular Cardiovascular exam: Present: bradycardia - GI/Abdominal GI/Abdominal exam: Present: soft. Absent: tenderness - Extremities Exam Extremities exam: Present: warm. Absent: tenderness - Neurological Exam Neurological exam: Present: alert, oriented X3, no focal deficits - Psychiatric Psychiatric exam: Present: anxious - Skin Skin exam: Present: dry, warm. Absent: rash Internal Medicine: Result - Labs CBC & Chem 7: 04/02/17 04:34 04/02/17 04:34 Labs: Short CBC 04/02/17 Range/Units 04:34 WBC 5.9 (4.3-11.1) K/mcL Hgb 12.6 D (11.5-15.4) g/dL Hct 39.2 (35.3-44.9) % Plt Count 179 (140-400) K/mcL Neutrophils # 3.7 (1.6-8.9) K/mcL BMP 04/02/17 04:34 Sodium 141 Potassium 3.4 L D Chloride 108 Carbon Dioxide 25 BUN 18 Creatinine 0.84 Glucose 86 Calcium 9.0 Cardiac Enzymes 04/01/17 04/02/17 Range/Units 22:25 04:34 Troponin I 0.03 0.02 (0-0.03) ng/mL - ABG Interpretation ABG results: PT/INR, D-dimer PT 10.4 Seconds (9.4-12.1) 04/01/17 09:45 Consult Discharge Plan - Plan Referrals: Stuart St DO [Primary Care Provider] -
[2017-04-03 05:32] LABS: Hematocrit 41.6 % (35.3-44.9); Hemoglobin 13.8 g/dL (11.5-15.4); Mean Corpuscular HGB Conc 33.2 g/dL (31.6-35.5); Mean Corpuscular Hemoglobin 31.1 pg (28.0-33.3); Mean Corpuscular Volume 93.7 fL (83.0-100.0); Mean Platelet Volume 10.9 fL (9.4-12.4); Platelet Count 192 K/mcL (140-400); Red Blood Count 4.44 M/mcL (3.82-4.97); Red Cell Distribution Width 13.7 % (11.5-14.5)
[2017-04-03 05:41] LABS: BUN/Creatinine Ratio 21 (6-26); Blood Urea Nitrogen 18 mg/dL (7-20); Carbon Dioxide 23 mEq/L (19-29); Chloride 109 mEq/L (98-109); Glucose 94 mg/dL (70-99); Magnesium 1.8 mg/dL (1.6-2.6); Osmolality,Calculated 292 (280-300); Potassium 3.7 mEq/L (3.5-4.5); Sodium 140 mEq/L (136-145); eGFR For African Americans > 60 (> 60); eGFR For Non-African Americans > 60 (> 60)
[2017-04-03] MEDS: cefTRIAXone 1,000 MG in Water for inj. (sterile) 10 ML IVP SCH (07:59)
--- NOTE | 2017-04-03 08:02 | Internal Med Progress Note ---
<Miky Atkinson - Last Filed: 04/03/17 13:51> Date of Encounter: 04/03/17 Time of Encounter: 08:02 - Assessment and plan (1) AV block Current Visit: Yes Status: Acute Assessment and plan: Appreciate cardiology input. Consult yesterday - 2:1 AV block, LBBB. Avg HR 63 BPM on tele, NSR with episodes of bradycardia with HR as low as 32 bpm, 2.4 second pauses, episodes of 2:1 AV block, episodes of junctional rhythm. HR up to 90 bpm. Hold home Atenolol 50 mg daily, last dose was 04/02 AM. Monitor 24- 48 hours for improvement. If no improvement will consult EP. TTE 05/15/15 -Normal LV systolic function, LVEF 65%. Dyssynchronous septal motion consistent with bundle branch block Cardiology is planning for pacemaker placement this afternoon (2) Syncope Current Visit: Yes Status: Acute Assessment and plan: Most likely related to bradycardia and AV block. Monitor on tele. Hold AVN blocking agents. Qualifiers: Syncope type: unspecified Qualified Code(s): R55 - Syncope and collapse (3) PREMA (acute kidney injury) Current Visit: Yes Status: Acute Assessment and plan: On admission Cr = 1.17, eGFR = 53. Continue to avoid nephrotoxins (4) Hypertension Current Visit: No Status: Chronic Assessment and plan: Stable, diastolic readings in 50s despite holding home meds (atenolol 50 mg daily, chlorthalidone 25 mg daily). Will reevaluate following PPM placement Qualifiers: Hypertension type: essential hypertension Qualified Code(s): I10 - Essential (primary) hypertension (5) UTI (urinary tract infection) Current Visit: Yes Status: Acute Assessment and plan: Patient with urinary frequency, large leuk esterase + WBC, nitrite neg. Final Cx showed no growth. Continue Rocephin IV x5 days total Qualifiers: Urinary tract infection type: acute cystitis Hematuria presence: without hematuria Qualified Code(s): N30.00 - Acute cystitis without hematuria (6) Hypokalemia Current Visit: Yes Status: Acute Assessment and plan: K+ = 3.4 yesterday. Replaced and today = 3.7. Continue to monitor daily - Subjective Interval history: Patient examined at bedside with her son present in the room. She reports she's had a couple more pre-syncopal episodes while sitting in bed last night and this morning but no syncope. She denies chest pain, palpitations. Feeling a little short of breath. No new complaints today - Constitutional Vitals: Temp Pulse Resp BP Pulse Ox 98.3 F 39 20 126/50 95 04/03/17 07:18 04/03/17 07:18 04/03/17 07:18 04/03/17 07:18 04/03/17 07:18 General appearance: Present: A&O X 3, pleasant, answers questions appropriately - Respiratory Respiratory exam: Present: CTAB. Absent: rales, rhonchi, wheezes - Cardiovascular Cardiovascular exam: Present: bradycardia. Absent: diastolic murmur, gallop, rubs, systolic murmur - GI/Abdominal GI/Abdominal exam: Present: soft. Absent: tenderness - Neurological Exam Neurological exam: Present: alert, oriented X3, no focal deficits Internal Medicine: Result - Labs CBC & Chem 7: 04/03/17 04:56 04/03/17 04:56 Labs: Short CBC 04/03/17 Range/Units 04:56 WBC 7.9 (4.3-11.1) K/mcL Hgb 13.8 (11.5-15.4) g/dL Hct 41.6 (35.3-44.9) % Plt Count 192 (140-400) K/mcL [facility] 04/03/17 04:56 Sodium 140 Potassium 3.7 Chloride 109 Carbon Dioxide 23 BUN 18 Creatinine 0.85 Glucose 94 Calcium 9.0 - ABG Interpretation ABG results: PT/INR, D-dimer PT 10.4 Seconds (9.4-12.1) 04/01/17 09:45 - Impressions Impressions Echocardiogram 04/02/17 13:41 Impressions: LVEF 60%. Normal LV chamber size and function. Asymmetric hypertrophy of the basal septum. No LVOT obstruction. Atypical septal motion consistent with bundle branch block. Indeterminate diastolic function. Normal right ventricular structure and function. Mild aortic regurgitation. Mild tricuspid regurgitation. No pulmonary hypertension. Findings: Study Quality * Technically adequate exam. ECG Findings * Sinus bradycardia, bundle branch block. Left Ventricle * LVEF 60%. * Normal LV chamber size and function. * Asymmetric hypertrophy of the basal septum. No LVOT obstruction. * Atypical septal motion consistent with bundle branch block. * Indeterminate diastolic function. Right Ventricle * Normal right ventricular structure and function. Left Atrium * Mildly dilated left atrium. Right Atrium * Mildly dilated right atrium. Aortic Valve * Trileaflet aortic valve. * Mildly calcified aortic valve leaflets. * Mild aortic regurgitation. * No aortic stenosis. Mitral Valve * Mildly thickened mitral valve leaflets. * Mild mitral annular calcification. * Trace mitral regurgitation. * No mitral stenosis. Tricuspid Valve * Normal tricuspid valve structure. * Mild tricuspid regurgitation. * No pulmonary hypertension. Pulmonic Valve * Pulmonic valve is not well visualized. * No pulmonic regurgitation. Aorta * Normally sized aortic root. Pericardium * The pericardium appears normal. IVC * Normal IVC dimensions and inspiratory collapse. Pulmonary Artery * Normal visualized portions of the main pulmonary artery. Consult Discharge Plan - Plan Referrals: Stuart St DO [Primary Care Provider] - <Serina Andrews - Last Filed: 04/03/17 17:29> Date of Encounter: 04/03/17 Time of Encounter: 12:15 - Constitutional Vitals: Temp Pulse Resp BP Pulse Ox 97.8 F 35 18 134/54 97 04/03/17 14:40 04/03/17 14:40 04/03/17 14:40 04/03/17 14:40 04/03/17 14:40 Internal Medicine: Result - Labs CBC & Chem 7: 04/03/17 04:56 04/03/17 04:56 - ABG Interpretation ABG results: PT/INR, D-dimer PT 10.4 Seconds (9.4-12.1) 04/01/17 09:45 - Attending Attestation Patient is an 86-year-old female admitted for syncope secondary to AV block. Patient independently seen and examined at bedside. Resting comfortably in bed and denies any discomfort at this time. Patient scheduled for permanent pacemaker placement later today. Cardiology on board and consultation appreciated. Holding all AV blockers at this time. Case discussed with resident physician Miky Atkinson, I agree with his documented findings, assessment, and plan, except as listed above
--- NOTE | 2017-04-03 11:34 | Electrophysiology Consult Note ---
<Erasto Doran - Last Filed: 04/03/17 12:26> Date of Encounter: 04/03/17 - Attending Attestation I have personally performed a face to face evaluation on this patient. I have reviewed and agree with the care plan. History and Exam by me shows: Syncope and AV block. Recommend pacemaker, risks and benefits discussed. Assessment and Plan Discussion w patient/family: The assessment and plan as outlined above was discussed with the patient and/or family members who expressed understanding and agreement. All questions were answered. Thank you for involving us in the care of your patient. Please call with any questions. History of Present Illness History of present illness: Ms. Jackman is a 86 year old female Medications and Allergies Atenolol [Tenormin] 50 mg PO DAILY 05/13/15 [History] Chlorthalidone 25 mg PO DAILY 05/13/15 [History] Potassium Chloride 10 meq PO BID 05/13/15 [History] Calcium Carbonate/Vitamin D3 [Calcium 500 + Vit D Caplet] 1 tab PO DAILY [History] 3 Allergy/AdvReac Type Severity Reaction Status Date / Time [id number] Reductase Allergy Vomiting Verified 04/01/17 09:33 Inhibitor [Statins] All Systems Review: A 10-system review of systems was performed and is negative for pertinent findings except as documented above in the HPI. Physical Examination Vital Signs, Last 4 Hours Temp Pulse Resp BP Pulse Ox 04/03/17 11:37 98.1 F 36 18 116/50 96 Results 04/03/17 04:56 04/03/17 04:56 Consult Discharge Plan - Plan Referrals: Stuart St DO [Primary Care Provider] - <Olayinka Pete - Last Filed: 04/03/17 14:04> Date of Encounter: 04/03/17 Time of Encounter: 11:30 Assessment and Plan (1) Complete heart block Current Visit: Yes Status: Acute Pt converted to CHB vs persistent type II 2nd degree block this morning despite discontinuing atenolol. I will review with Dr. Erasto Doran. C/o mild SOB and presyncopal symptoms this morning. B/p remains normal. Plan for PPM placement this afternoon. R/B/A of PPM discussed. She agrees to proceed. (2) Symptomatic bradycardia Current Visit: Yes Status: Acute Presented after syncopal event. Initially patient seen to have NSR on telemetry. She developed intermittent bradycardia with HR in the 30's during waking hours, intermittent junctional rhythm, and pauses up to 2.4 seconds. Atenolol held. HR consistently in the 30's overnight and she developed CHB. TTE completed showed:LVEF 60%. Normal LV chamber size and function. Asymmetric hypertrophy of the basal septum. No LVOT obstruction. Atypical septal motion consistent with bundle branch block. Indeterminate diastolic function. Normal right ventricular structure and function. Mild aortic regurgitation. Mild tricuspid regurgitation. No pulmonary hypertension. TSH is normal. Avoid AV wilder blayne. Plan for ppm later today. (3) Syncope Current Visit: Yes Status: Acute Multiple syncopal events likely secondary to bradycardia and sinus pauses. See plan above. Qualifiers: Syncope type: unspecified Qualified Code(s): R55 - Syncope and collapse (4) Left bundle branch block (LBBB) on electrocardiogram Current Visit: Yes Status: Chronic H/o LBBB. Seen on EKG in 2016. Discussion w patient/family: The assessment and plan as outlined above was discussed with the patient and/or family members who expressed understanding and agreement. All questions were answered. Thank you for involving us in the care of your patient. Please call with any questions. History of Present Illness Consult date: 04/03/17 Requesting physician: Toni Alegria Consult reason: CHB, symptomatic bradycardia Chief complaint: syncopal episodes, dyspnea History of present illness: Ms. Jackman is a 86 year old female with a past medical history of HTN, HLD, and LBBB who presented after experiencing multiple syncopal events at home while sitting in her chair. She c/o a blackness rising over her. When she wakes she c/ o feeling confused for several minutes and SOB. During her hospital stay cardiology consulted for symptomatic bradycardia and 2:1 AV block. She was on atenolol 50 mg daily for hypertension. Atenolol was held. Last dose was 04/02 at 0830. No improvement in HR overnight. This morning she was noted to have complete heart block. Electrophysiology consulted for further evaluation. B/p is stable. She denies recurrent syncopal event. Reports a couple of sensations of pending doom. Past Med Surg Social Fam HX - Past Medical History Attestation: Yes The following information was validated with the patient. Medical history: GERD, hyperlipidemia, hypertension, osteoporosis, other Psychiatric history: anxiety - Past Surgical History Surgical History: cataract, cholecystectomy, knee replacement, PEREZ/BSO, other - Social History Smoking Status: Former smoker Smokeless Tobacco Status: No Alcohol use: none Drug use: none - Family History Mother Living Status: Hx Family Cardiac Disorders: Yes Hx Family Respiratory Disorders: No Hx Family Cancer: Yes Hx Family GI Disorders: No Hx Family Endocrine Disorder: No Hx Family Neuromuscular Disorders: No Hx Family Neurologic Disorders: No Hx Family HEENT Disorders: No Hx Family Autoimmune Disorders: No All Systems Review: A 10-system review of systems was performed and is negative for pertinent findings except as documented above in the HPI. Physical Examination Vital Signs Temp Pulse Resp BP BP BP BP 04/03/17 11:37 98.1 F 36 18 116/50 04/03/17 08:31 39 04/03/17 07:18 98.3 F 39 20 126/50 04/03/17 03:56 97.3 F L 46 17 129/56 04/03/17 00:08 97.3 F L 48 18 120/62 04/02/17 21:42 97.9 F 38 16 113/43 04/02/17 20:00 35 04/02/17 15:42 98.4 F 35 16 109/60 04/02/17 13:44 98.1 F 43 18 148/73 04/02/17 13:43 90/43 108/47 148/73 Pulse Ox 04/03/17 11:37 96 04/03/17 08:31 96 04/03/17 07:18 95 04/03/17 03:56 95 04/03/17 00:08 95 04/02/17 21:42 95 04/02/17 20:00 04/02/17 15:42 96 04/02/17 13:44 97 04/02/17 13:43 Intake and Output 04/02/17 04/03/17 04/03/17 23:59 07:59 15:59 Intake Total 100 / 100 Output Total 400 / 400 300 / 300 200 / 200 Balance -400 / -400 -200 / -200 -200 / -200 Intake: Oral 100 / 100 Output: Urine 400 / 400 300 / 300 200 / 200 General: Conversant, No Apparent Distress HEENT: Atraumatic, Normocephaly, Mucus Membranes Moist Neck: No JVD, Normal carotid pulses Cardiac: Reg Rate and Rhythm, Normal S1 and S2, No Murmur Lungs: Normal Breath Sounds, No Wheeze, Rales, Rhonchi Neuro: Alert and responsive, No focal deficits noted Abdomen: Soft, Non-Tender Skin: No rashes noted on visualized skin Musculoskeletal: No Chest Wall Tenderness Extremities: No Clubbing, No Cyanosis, No Edema, Normal Pulses, Other (Scaling of BLE noted.) Results 04/03/17 04:56 04/03/17 04:56 - Imaging and Cardiology Echo: report reviewed
[2017-04-03] MEDS ORDERED: CeFAZolin Syr 2,000MG/20 ML 2,000 MG/20 ML SYRINGE IVPB ONE (12:02)
--- NOTE | 2017-04-03 12:44 | Pre-Sedation Evaluation ---
Pre-sedation evaluation - Pre-sedation checklist Date of procedure: 04/03/17 Procedure: Pacemaker Recent Vitals: Last Vital Signs Temp 98.1 F 04/03/17 11:37 Pulse 36 04/03/17 11:37 Resp 18 04/03/17 11:37 BP 116/50 04/03/17 11:37 Pulse Ox 96 04/03/17 11:37 H&P (including ROS) documented in medical record: Yes Previous reaction to sedatives/anesthetics: No Dietary Status: NPO after Midnight Airway Assessment: Patient can open mouth completely, TMJ function normal, Micrognathia (under-bite, receding chin) absent Dentition: No loose teeth or bridges Possible difficult airway: No ASA Classification *see protocol: CLASS II-Mild systemic disease Plan of Care: Pt appropriate candidate for procedure/moderate/conscious sedation , Risks/benefits of procedure/sedation discussed w/ patient/family
[2017-04-03] MEDS ORDERED: CeFAZolin Premix DUPLEX 2,000 MG/50 ML BAG IVPB ONE (14:45)
[2017-04-03] MEDS ORDERED: *HR* Midazolam HCl 2 MG/2 ML VIAL ONE (15:37)
[2017-04-03] MEDS ORDERED: *HR* FentaNYL (PF) 100 MCG/2 ML VIAL ONE (15:37)
[2017-04-03] MEDS ORDERED: Water for inj. (sterile) 10 ML IV ONE (15:38)
[2017-04-03] MEDS ORDERED: 0.9 % Sodium Chloride 1,000 ML ONE (15:38)
[2017-04-03] MEDS ORDERED: 0.9 % Sodium Chloride 500 ML ONE (15:38)
[2017-04-03] MEDS ORDERED: *HR* Morphine 2 MG/ML SYRINGE IVP PRN (16:51)
--- NOTE | 2017-04-03 17:45 | Electrocardiograph Report ---
[address] [address] Test Date: 2017-04-02 Pat Name: Leonela Jackman Department: 113 Room: 2N09 Gender: F Marketing Content Coordinator: : 1930 Requested By: Fernando Nolan Order Number: [id number] Reading MD: Roselyn Doran Measurements Intervals [place] Rate: 38 P: [place]: 0 QRS: -40 QRSD: 158 T: 119 QT: 488 QTc: 409 Interpretive Statements SINUS BRADYCARDIA WITH 2ND DEGREE AV BLOCK, MOBITZ TYPE II MARKED LEFT AXIS DEVIATION LEFT BUNDLE BRANCH BLOCK Electronically Signed On 04-03-2017 17:44:15 EST by Roselyn Doran
--- NOTE | 2017-04-03 17:46 | Electrocardiograph Report ---
[place] [address] Test Date: 2017-04-03 Pat Name: Leonela Jackman Department: 110 Room: 09 Gender: F Swatch Paster: YADY : 1930 Requested By: Olayinka Pete Order Number: [id number] Reading MD: Roselyn Doran Measurements Intervals [place] Rate: 35 P: [place]: 0 QRS: -37 QRSD: 158 T: 74 QT: 566 QTc: 467 Interpretive Statements COMPLETE HEART BLOCK Electronically Signed On 04-03-2017 17:45:20 EST by Roselyn Doran
[2017-04-03] MEDS: Sennosides/Docusate Sodium TABLET PO SCH (22:05)
[2017-04-04] MEDS: CeFAZolin Premix DUPLEX 2,000 MG/50 ML BAG IVPB SCH ×2 (00:07→11:42)
[2017-04-04 05:52] LABS: Basophils % 0.2 %; Eosinophils # 0.2 K/mcL (0.0-0.6); Eosinophils % 2.7 %; Hematocrit 42.7 % (35.3-44.9); Hemoglobin 13.9 g/dL (11.5-15.4); Immature Granulocytes % 0.7 % (0-4); Lymphocytes # 1.4 K/mcL (0.6-4.6); Lymphocytes % 15.6 %; Mean Corpuscular HGB Conc 32.6 g/dL (31.6-35.5); Mean Corpuscular Hemoglobin 30.2 pg (28.0-33.3); Mean Corpuscular Volume 92.8 fL (83.0-100.0); Mean Platelet Volume 11.3 fL (9.4-12.4); Monocytes % 10.8 %; Neutrophils # 6.3 K/mcL (1.6-8.9); Platelet Count 184 K/mcL (140-400); Red Cell Distribution Width 13.7 % (11.5-14.5)
[2017-04-04] MEDS ORDERED: *HR* Heparin 5,000 UNIT/ML VIAL SQ SCH (06:00)
[2017-04-04 06:06] LABS: BUN/Creatinine Ratio 18 (6-26); Blood Urea Nitrogen 15 mg/dL (7-20); Calcium 9.1 mg/dL (8.6-10.8); Carbon Dioxide 23 mEq/L (19-29); Chloride 106 mEq/L (98-109); Glucose 95 mg/dL (70-99); Magnesium 1.8 mg/dL (1.6-2.6); Osmolality,Calculated 289 (280-300); Phosphorous 2.5 mg/dL (2.3-4.7); Potassium 3.3 mEq/L (3.5-4.5); Sodium 139 mEq/L (136-145); eGFR For African Americans > 60 (> 60); eGFR For Non-African Americans > 60 (> 60)
[2017-04-04] MEDS: Sennosides/Docusate Sodium TABLET PO SCH (08:20)
[2017-04-04] MEDS: cefTRIAXone 1,000 MG in Water for inj. (sterile) 10 ML IVP SCH (08:21)
--- NOTE | 2017-04-04 12:15 | Cardiology Progress Note ---
Date of Encounter: 04/04/17 Time of Encounter: 09:00 Assessment and Plan (1) Complete heart block Current Visit: Yes Status: Acute Pt converted to CHB yesterday, initially sinus bradycardia and 2:1 Block. S/p PPM 04/03/17. No complications from procedure. F/u CXR pending. Device check showed normal sensing. [place] R wave was oversensing. Device rep notified and is going to make device setting changes prior to d/c. Activity restrictions reviewed with patient. No heavy lifting over 5 lbs for one month with left arm. No heavy pushing or pulling. Patient considering ECF. Out pt follow up in the device clinic in one week for a wound check and one month for a device check will be coordinated. Out-patient f/u in [address] Doran. Ok to d/c from cardiology standpoint if CXR shows no abnormal findings. Please call with questions. (2) Symptomatic bradycardia Current Visit: Yes Status: Acute Presented after syncopal event. Initially patient seen to have NSR on telemetry. She developed intermittent bradycardia with HR in the 30's during waking hours, intermittent junctional rhythm, and pauses up to 2.4 seconds. Atenolol held. HR consistently in the 30's overnight and she developed CHB the next day. TTE completed showed:LVEF 60%. Normal LV chamber size and function. Asymmetric hypertrophy of the basal septum. No LVOT obstruction. Atypical septal motion consistent with bundle branch block. Indeterminate diastolic function. Normal right ventricular structure and function. Mild aortic regurgitation. Mild tricuspid regurgitation. No pulmonary hypertension. TSH is normal. S/p PPM. Out patient f/u will be scheduled. (3) Syncope Current Visit: Yes Status: Acute Multiple syncopal events secondary to bradycardia and sinus pauses. Qualifiers: Syncope type: unspecified Qualified Code(s): R55 - Syncope and collapse (4) Left bundle branch block (LBBB) on electrocardiogram Current Visit: Yes Status: Chronic H/o LBBB. Seen on EKG in 2016. Discussion w patient/family: The assessment and plan as outlined above was discussed with the patient and/or family members who expressed understanding and agreement. All questions were answered. Thank you for involving us in the care of your patient. Please call with any questions. Subjective Principal diagnosis: complete heart block, symptomatic bradycardia Interval history: S/p PPM placement. No complications. Denies chest pain. Denies recurrent presyncopal event. Objective Vital Signs, Last 4 Hours Temp Pulse Resp BP Pulse Ox 04/04/17 11:18 98.7 F 95 17 137/104 96 04/04/17 08:41 86 General: Conversant, No Apparent Distress HEENT: Atraumatic, Normocephaly, Mucus Membranes Moist Neck: No JVD, Normal carotid pulses Cardiac: Reg Rate and Rhythm, Normal S1 and S2, No Murmur, Other (CARRIE dressing intact. ) Lungs: Normal Breath Sounds, No Wheeze, Rales, Rhonchi Neuro: Alert and responsive, No focal deficits noted Abdomen: Soft, Non-Tender Skin: No rashes noted on visualized skin Musculoskeletal: No Chest Wall Tenderness Extremities: No Clubbing, No Cyanosis, No Edema, Normal Pulses Results 04/04/17 04:37 04/04/17 04:37 Lab Results 04/04/17 04/04/17 04/04/17 04:37 04:37 04:37 WBC 8.9 Hgb 13.9 Hct 42.7 Plt Count 184 Sodium 139 139 Potassium 3.3 L 3.3 L Chloride 106 106 Carbon Dioxide 23 23 BUN 15 15 Creatinine 0.83 0.83 Glucose 95 Calcium 9.1 Magnesium 1.8 - Imaging and Cardiology Chest Xray: report reviewed - EKG Interpretation EKG results cardiology: personally reviewed Consult Discharge Plan - Plan Referrals: Stuart St DO [Primary Care Provider] - 04/10/17 1:30 pm
--- NOTE | 2017-04-04 13:16 | Internal Med Progress Note ---
Date of Encounter: 04/04/17 Time of Encounter: 13:14 - Assessment and plan (1) AV block Current Visit: Yes Status: Acute Assessment and plan: Patient was having syncopal episodes at home and shortly after admission she was found on telemetry to have bradycardia with a heart rate in 30s, EKG showed second-degree type II AV block which eventually progressed to third-degree heart block. Cardiology was consulted and patient underwent permanent pacemaker placement yesterday. Patient tolerated this procedure well and her heart rate is in the 90s today. Patient did have some oversensing of her pacemaker and changes were made appropriately by cardiology. Per cardiology recommendations, we will set the patient with a follow-up in the device clinic in 1 week for wound check and then 1 month for device check. This has been arranged by cardiology. (2) Syncope Current Visit: Yes Status: Acute Assessment and plan: Secondary to complete heart block as discussed above. Patient is status post pacemaker placement as discussed above. Patient has had no more events since her pacemaker was placed. Patient does not feel safe going home at this time and would like to go to [facility] where her resides. Social workers were consulted to assist with placement. Qualifiers: Syncope type: unspecified Qualified Code(s): R55 - Syncope and collapse (3) UTI (urinary tract infection) Current Visit: Yes Status: Acute Assessment and plan: UA positive leukocyte esterase on admission, patient also had dysuria. Patient is on Rocephin day 4, we will treat for a total of 5 days. Qualifiers: Urinary tract infection type: acute cystitis Hematuria presence: without hematuria Qualified Code(s): N30.00 - Acute cystitis without hematuria (4) PREMA (acute kidney injury) Current Visit: Yes Status: Resolved Assessment and plan: SCr 1.17 on admission. Possibly related to hypoperfusion in the setting of symptomatic bradycardia and AV block as discussed above. Creatinine has normalized. Patient has good urine output. Continue to monitor renal function. (5) Hypertension Current Visit: No Status: Chronic Assessment and plan: Blood pressure has slowly been rising since her pacemaker placement yesterday. Heart rate has also been rising into the 90s and low 100s. Discussed with cardiology and we will restart her atenolol. We will continue to monitor for blood pressure remains elevated will restart her thiazide diuretic. Qualifiers: Hypertension type: essential hypertension Qualified Code(s): I10 - Essential (primary) hypertension (6) Hypokalemia Current Visit: Yes Status: Acute Assessment and plan: K+ = 3.7 yesterday after replacement. 3.3 today. We will replace with 40 mEq orally. Recheck tomorrow. - Subjective Interval history: Patient seen and examined at bedside. She states that she feels better today. She has not had any other presyncopal episodes that she had prior to her pacemaker placement. She underwent pacemaker placement yesterday and tolerated this well. She has no bleeding or pain at the pacemaker site. She denies chest pain, shortness of breath - Constitutional Vitals: Temp Pulse Resp BP Pulse Ox 98.7 F 95 17 137/104 96 04/04/17 11:18 04/04/17 11:18 04/04/17 11:18 04/04/17 11:18 04/04/17 11:18 General appearance: Present: A&O X 3, pleasant, answers questions appropriately - Respiratory Respiratory exam: Present: CTAB. Absent: rales, rhonchi, wheezes - Cardiovascular Cardiovascular exam: Present: irregular rhythm. Absent: gallop, rubs, systolic murmur Additional comments: Dressing applied to the pacemaker site in the upper left chest. Dressing is clean dry and intact. - GI/Abdominal GI/Abdominal exam: Present: normal bowel sounds, soft. Absent: distended, tenderness - Extremities Exam Extremities exam: Present: warm. Absent: pedal edema, tenderness - Neurological Exam Neurological exam: Present: alert, CN II-XII intact, oriented X3, no focal deficits Internal Medicine: Result - Labs CBC & Chem 7: 04/04/17 04:37 04/04/17 04:37 Labs: Short CBC 04/04/17 Range/Units 04:37 WBC 8.9 (4.3-11.1) K/mcL Hgb 13.9 (11.5-15.4) g/dL Hct 42.7 (35.3-44.9) % Plt Count 184 (140-400) K/mcL Neutrophils # 6.3 (1.6-8.9) K/mcL BMP 04/04/17 04/04/17 04:37 04:37 Sodium 139 139 Potassium 3.3 L 3.3 L Chloride 106 106 Carbon Dioxide 23 23 BUN 15 15 Creatinine 0.83 0.83 Glucose 95 Calcium 9.1 - ABG Interpretation ABG results: PT/INR, D-dimer PT 10.4 Seconds (9.4-12.1) 04/01/17 09:45 - Impressions Impressions Chest X-Ray 04/03/17 16:51 IMPRESSION: No pneumothorax status post left subclavian pacemaker insertion. D/ / Ketan Johnston MD / Ketan Johnstno MD Interpreting Provider: Ketan Johnston MD Consult Discharge Plan - Plan Referrals: Stuart St DO [Primary Care Provider] - 04/10/17 1:30 pm
[2017-04-04 13:31] VITALS: BP 110/73
--- NOTE | 2017-04-04 14:34 | Discharge Summary ---
<Dheeraj Joshi - Last Filed: 04/04/17 15:31> Date of Encounter: 04/04/17 Time of Encounter: 14:32 - Discharge Diagnosis (1) AV block Priority: Primary Status: Resolved (2) Syncope Priority: Primary Status: Resolved Qualifiers: Syncope type: unspecified Qualified Code(s): R55 - Syncope and collapse (3) UTI (urinary tract infection) Priority: Primary Status: Acute Qualifiers: Urinary tract infection type: acute cystitis Hematuria presence: without hematuria Qualified Code(s): N30.00 - Acute cystitis without hematuria (4) PREMA (acute kidney injury) Priority: Secondary Status: Resolved (5) Hypertension Priority: Secondary Status: Chronic Qualifiers: Hypertension type: essential hypertension Qualified Code(s): I10 - Essential (primary) hypertension (6) Hypokalemia Priority: Secondary Status: Acute - Discharge Medications Prescriptions: Cefdinir [Omnicef] 300 mg PO DAILY #1 capsule Home Medications: Atenolol [Tenormin] 50 mg PO DAILY 05/13/15 [History] Potassium Chloride 10 meq PO BID 05/13/15 [History] Calcium Carbonate/Vitamin D3 [Calcium 500 + Vit D Caplet] 1 tab PO DAILY [History] Cefdinir [Omnicef] 300 mg PO DAILY #1 capsule 04/04/17 [Rx] Chlorthalidone 25 mg PO DAILY #0 04/04/17 [Rx] Allergies/Adverse Reactions: 3 Allergy/AdvReac Type Severity Reaction Status Date / Time Yzcfajm-Fdh-Axb Reductase Allergy Vomiting Verified 04/01/17 09:33 Inhibitor [Statins] Procedures/tests Complete & Pending: Procedures Performed prior 72 hours Category Date Time Status CL Insert Permanent Pacemaker [CL] Routine Agent 04/03/17 12:02 Completed ECG 12 lead ECG [ECG] Routine Y 04/02/17 14:56 Completed EKG [ECG 12 lead ECG] [ECG] Stat Y 04/03/17 11:29 Completed Date of admission: 04/03/17 09:06 Primary care physician: Krish Shultz Discharging clinician: Dheeraj Joshi Anticipated date of discharge: 04/04/17 - Patient Status Disposition: Transfer SNF Condition: Fair Functional capacity at discharge: uses cane/walker Overall status at discharge: patient is progressing back to baseline - Discharge Instructions Instructions: Cefdinir (By mouth), Pacemaker (DC), Urinary Tract Infection in Women (DC), Bradycardia (DC) Follow Up With: Erasto Doran MD [Partnered Physician] - (Device clinic 1 week for wound check Device clinic 1 month for device check [address]. Doran in 3 months cardio will call with an appointment. ) Stuart St DO [Primary Care Provider] - (patient is going to [facility] no PCP is needed) Additional Instructions: Please resume your home medication other than her chlorthalidone. Please restart her chlorthalidone if your systolic blood pressure is greater than 150. Please take your antibiotic tomorrow. Please ambulate with assist at the [facility]. Please return for new or worsening symptoms. - Diet and Activity Activity: increase activity as tolerated Diet: advance to your usual diet Interval History: Patient seen and examined at bedside. Patient states that she feels much better today. She denies any near syncopal or syncopal episodes since her pacemaker was placed. She tolerated pacemaker placement well. She denies any pain or bleeding at her pacemaker site. Hospital course: Ms. Jackman is a 86 year old female with history of hypertension who presented with near syncopal episodes. Patient described episodes where she had a funny feeling that started in her chest and one of her neck and into her head and she felt like she is going to pass out. Patient underwent syncopal workup and while on telemetry the patient was found to have intermittent episodes of bradycardia with a heart rate in the 30s. Patient was mildly symptomatic with these episodes similar to her presenting complaint. Patient's home beta blayne was held for 24 hours to see if her symptoms and heart rate improved however she remained persistently bradycardic with a second-degree type II AV block to progress to complete heart block. Patient underwent permanent pacemaker placement which she tolerated well. Patient's heart rate remained normal post pacemaker placement and her symptoms resolved. Patient will be discharged to [facility] in stable condition. - Time Spent with Patient Total time spent providing and/or coordinating discharge services: 40 minutes - Constitutional Vitals: Temp Pulse Resp BP Pulse Ox 98.7 F 83 17 110/73 96 04/04/17 11:18 04/04/17 11:50 04/04/17 11:18 04/04/17 13:00 04/04/17 11:18 General appearance: Present: A&O X 3, pleasant, answers questions appropriately - Respiratory Respiratory exam: Present: CTAB. Absent: rales, rhonchi, wheezes - Cardiovascular Cardiovascular exam: Present: RRR. Absent: gallop, rubs, systolic murmur - GI/Abdominal GI/Abdominal exam: Present: normal bowel sounds, soft. Absent: distended, tenderness - Extremities Exam Extremities exam: Present: warm. Absent: pedal edema, tenderness - Incison Incision: Present: clean and dry, intact. Absent: red, swollen Comments: Left chest wall pacemaker insertion site - Neurological Exam Neurological exam: Present: alert, CN II-XII intact, oriented X3, no focal deficits <Serina Andrews - Last Filed: 04/04/17 17:30> Date of Encounter: 04/04/17 Procedures/tests Complete & Pending: Procedures Performed prior 72 hours Category Date Time Status CL Insert Permanent Pacemaker [CL] Routine Agent 04/03/17 12:02 Completed ECG 12 lead ECG [ECG] Routine Y 04/02/17 14:56 Completed EKG [ECG 12 lead ECG] [ECG] Stat Y 04/03/17 11:29 Completed Date of admission: 04/03/17 09:06 Primary care physician: Krish Shultz - Patient Status Functional capacity at discharge: uses cane/walker Overall status at discharge: patient is progressing back to baseline Hospital course: Ms. Jackman is a 86 year old female - Time Spent with Patient Total time spent providing and/or coordinating discharge services: - Constitutional Vitals: Temp Pulse Resp BP Pulse Ox 98.7 F 83 17 110/73 96 04/04/17 11:18 04/04/17 11:50 04/04/17 11:18 04/04/17 13:00 04/04/17 11:18 - Attending Attestation patient is an 86y/o female who was admitted for syncope secondary to AV block. She was followed by cardiology and had a PPM placed. Pt tolerated the procedure well. Her home dose of Atenolol was resumed. She was seen by physical therapy and ECF was recommended. Pt has been accepted at [facility] and will be discharged today. Patient was independently seen and examined at bedside. Case was discussed with resident physician Dheeraj Joshi, I agree with his documented findings, assessment, and plan except as listed above
--- NOTE | 2017-04-04 14:45 | Physician Discharge Referral ---
ExtendedCare Referral Info Transfer To: [facility] Provider in Charge after Transfer: PCP Institutional Level of Care: Skilled - Diagnosis (1) AV block Priority: Primary Status: Resolved (2) Syncope Priority: Primary Status: Resolved (3) UTI (urinary tract infection) Priority: Primary Status: Acute (4) PREMA (acute kidney injury) Priority: Secondary Status: Resolved (5) Hypertension Priority: Secondary Status: Chronic (6) Hypokalemia Priority: Secondary Status: Acute Prognosis: Fair Aware of Diagnosis: Patient, Family Aware of Prognosis: Patient, Family - Transfer Medications Prescriptions: Cefdinir [Omnicef] 300 mg PO DAILY #1 capsule Home Medications: Atenolol [Tenormin] 50 mg PO DAILY 05/13/15 [History] Potassium Chloride 10 meq PO BID 05/13/15 [History] Calcium Carbonate/Vitamin D3 [Calcium 500 + Vit D Caplet] 1 tab PO DAILY [History] Cefdinir [Omnicef] 300 mg PO DAILY #1 capsule 04/04/17 [Rx] Chlorthalidone 25 mg PO DAILY #0 04/04/17 [Rx] Allergies/Adverse Reactions: 3 Allergy/AdvReac Type Severity Reaction Status Date / Time Cmbopbk-Lpx-Vcm Reductase Allergy Vomiting Verified 04/01/17 09:33 Inhibitor [Statins] - Respiratory Orders None Smoking Cessation: Smoking cessation has been advised. For more information, call the [place] [employer] Quit Line at 4-361-TPQY-NOW. - Ancillary Orders May use pressure relief devices daily prn, May consult with Dentist, Truck Crane Operator, Fire Protection Fabricator PRN - Advance Directives Code Status: Full Code - Mobility Orders Ambulate (with assist) - Rehabiliation Orders Rehab Potential: Fair Rehab Orders: Evaluation for Physical Therapy, Evaluation for Occupational Therapy, Evaluation for Speech Therapy - Treatments Skin tear care topically daily PRN per policy, May check for fecal impaction rectally daily PRN, Fleet enema rectally every other day PRN cleansing purposes - Diet Orders Cardiac CERTIFICATION: I certify that the transfer of the above named patient to an Extended Care Facility is necessary for the continuing treatment of the diagnosis listed. The above information is true and accurate reflection of patient's current condition. Confidential - Redisclosure prohibited without a patient's written consent.
[2017-04-04] MEDS ORDERED: FLUARIX QUAD 2017-18 36MOS UP/PF 0.5 ML SYRINGE IM ONE (16:16)
--- NOTE | 2017-04-04 19:56 | Electrocardiograph Report ---
[place] [address] Test Date: 2017-04-02 Pat Name: Leonela Jackman Department: 110 Room: 2N09 Gender: F Painting Manager: : 1930 Requested By: Serina Andrews Order Number: [id number] Reading MD: Stewart Grey MD Measurements Intervals [place] Rate: 65 P: 61 AR: 286 QRS: -38 QRSD: 149 T: 116 QT: 471 QTc: 482 Interpretive Statements SINUS RHYTHM WITH FIRST DEGREE AV BLOCK MARKED LEFT AXIS DEVIATION LEFT BUNDLE BRANCH BLOCK Electronically Signed On 04-04-2017 19:55:24 EST by Stewart Grey MD
== END 2017-04-04 16:59 | DRG 243 ==
LOC: 3BNU 09:31 → EMEROO 09:31 → SUATTDRO 12:00 → 3BNU 12:28 → 2NNU 04-02 13:35 → SUATTDRO 04-03 09:06
PROVIDERS: ADMIT Internal Medicine; ATTEND Internal Medicine